=== PATIENT | male | born 1955 | race Caucasian/White ===

== ENCOUNTER 2022-11-04 20:59 | Inpatient (IN) | payer MEDICARE, MEDICAID, SELFPAY ==
--- NOTE | ~2022-11-04 | US_ITS ---
EXAMINATION: US carotid duplex BI DATE: 11/07/2022 14:52 INDICATION: Acute infarct involving the left cerebral white matter. TECHNIQUE: Grayscale, color Doppler, and pulsed Doppler images of the cervical carotid arteries were obtained. The degree of vessel stenosis is placed in one of the following categories: normal, <50%, 5 0-69%, >=70% but less than near-occlusion, near-occlusion, or total occlusion. Note that percent sten osis relative to normal distal artery lumen diameter is indirectly measured from velocity measurement s as described by Fahad, et al. Radiology 2003; 229:340-346. COMPARISON: None. FINDINGS: RIGHT: The right common carotid artery (CCA) peak systolic velocity (PSV) is 90 cm/s. The right internal car otid artery (ICA) PSV is 67 cm/s. The right ICA end-diastolic velocity (EDV) is 20 cm/s. The right IC A/CCA PSV ratio is 0.7. Grayscale and color Doppler images yield an estimate of <50% diameter reducti on from plaque in the ICA. There is antegrade flow in the right vertebral artery. LEFT: The left CCA PSV is 137 cm/s. The left ICA PSV is 199 cm/s. The left ICA EDV is 25 cm/s. The left ICA /CCA PSV ratio is 1.5. Grayscale and color Doppler images yield an estimate of <50% diameter reductio n from plaque in the ICA. There is antegrade flow in the left vertebral artery. IMPRESSION: 1. <50% stenosis in the right internal carotid artery. 2. <50% stenosis in the left internal carotid artery. Reviewed, dictated and finalized at location A.
--- NOTE | ~2022-11-04 | XR_ITS ---
XR chest 1V portable DATE: 11/04/2022 22:34 INDICATION: Centralized chest pain TECHNIQUE: Portable AP view on 11/05/2019 08/23/1933 COMPARISON: 02/01/2016 CT lung screening 03/09/2005 portable AP chest FINDINGS: Normal heart size. No hilar or mediastinal enlargement. No pulmonary infiltrate or consolid ation, pleural effusion or pulmonary vascular congestion or pneumothorax is detected. IMPRESSION: No active disease Reviewed, dictated and finalized at location A. IMPRESSION: No active disease
--- NOTE | ~2022-11-04 | CT_ITS ---
EXAMINATION: CT brain wo con DATE: 11/04/2022 23:00 INDICATION: Dizziness, weakness, gait disturbance, inability to walk. TECHNIQUE: Computed tomography (CT) of the head was performed without intravenous contrast. The mA wa s adjusted according to patient size. Iterative reconstruction technique was employed. Exam dose: 60 5.33 mGy-cm total exam DLP. COMPARISON: 12/20/2004 CT brain FINDINGS: Intracranial cerebral atherosclerosis. There is nonspecific diminished attenuation cerebral white matter, likely due to chronic small vessel ischemic changes. Bilateral chronic basal ganglia lacunar infarcts. There is a focal area of more diminished attenuation in the right periventricular white matter, which may represent a subacute or old infarct. No intracranial mass lesion or hemorrhage, midline shift or mass effect is detected. No subdural or e pidural hematoma. No fracture or bone destruction of the cranial vault. Included mastoid air cells and paranasal sinuse s are normally developed and aerated. 11/04/2022 IMPRESSION: Subacute or chronic focal infarct right periventricular white matter Several atherosclerosis and chronic small vessel ischemic changes of the cerebral white matter Reviewed, dictated and finalized at Location A. Reviewed, dictated and finalized at location A. IMPRESSION: Subacute or chronic focal infarct right periventricular white hortensia er Several atherosclerosis and chronic small vessel ischemic changes of the cerebr al white matter
--- NOTE | ~2022-11-04 | MR_ITS ---
MRI of the brain Clinical History: Dizziness Technique: Axial and sagittal T1-weighted images were acquired. These were followed by axial T2-weigh lara, diffusion weighted, gradient, and FLAIR images. Following intravenous administration of 16 cc Mu ltiHance gadolinium, T1-weighted fat-sat imaging was performed in the axial and coronal planes. Findings: There is a 2.2 x 0.8 cm area versus diffusion in the periventricular white matter adjacent to the left lateral ventricle, consistent with acute infarct, just superior to the basal ganglia. No intracranial hemorrhage identified. No mass lesion evident. There are several hyperintense white matter lesions in the periventricular white matter bilaterally o therwise, likely are presenting chronic microvascular ischemic change. Probable focal old right parie bucky lobe infarct present. Ventricles and subarachnoid spaces are unremarkable. Orbits are unremarkable. Paranasal sinuses and m astoid air cells are clear. Major intracranial flow voids are grossly preserved. Sagittal midline structures are intact. No abnormal postcontrast enhancement identified. IMPRESSION: 2.2 x 0.8 cm acute infarct in the immediate left periventricular white matter. Moderate probable chronic microvascular ischemic change. Correlate for any possibility of demyelinati ng disease/multiple sclerosis. Probable focal old right parietal lobe infarct. Reviewed, dictated and finalized at location M. IMPRESSION: 2.2 x 0.8 cm acute infarct in the immediate left periventricular white matter. Moderate probable chronic microvascular ischemic change. Correlate for any poss ibility of demyelinating disease/multiple sclerosis. Probable focal old right parietal lobe infarct.
--- NOTE | ~2022-11-04 | US_ITS ---
Renal-Bladder ultrasound Clinical History: Acute renal insufficiency Technique: Real-time sonographic imaging of the kidneys and urinary bladder was performed. Findings: The right kidney measures 9.5 cm in length and the left kidney measures 11.3 cm. There is n o hydronephrosis or renal calculus identified. Renal cortical echogenicity is within normal limits. N o renal mass lesion is identified. The urinary bladder is partially distended at the time of this exam. No intraluminal echoes are ident ified. No abnormal wall thickening is seen. Impression: Unremarkable ultrasound of the kidneys and urinary bladder. Reviewed, dictated and finalized at location M. Impression: Unremarkable ultrasound of the kidneys and urinary bladder.
[2022-11-04 21:01] VITALS: BP 178/78; PULSE 66; RESP 18; TEMP 36.5; O2SAT 98
[2022-11-04 22:15] LABS: Glucose Point of Care 122 mg/dl (65-105)
--- NOTE | 2022-11-04 22:19 | ECG_ITS ---
Measurements Intervals [place] Rate: 55 P: -16 VT: 143 QRS: 69 QRSD: 98 T: 45 QT: 452 QTc: 433 Interpretive Statements SINUS BRADYCARDIA SEPTAL MYOCARDIAL INFARCTION , OF INDETERMINATE AGE [40+ ms Q WAVE IN V1/V2] NO PREVIOUS ECG AVAILABLE FOR COMPARISON Electronically Signed On 11-05-2022 12:15:25 CDT by Armando Lugo M.D.
[2022-11-04 22:34] LABS: Alanine Aminotransferase 25 U/L (6-50); Albumin Level 3.9 g/dL (3.5-5.1); Alkaline Phosphatase 91 U/L (38-126); Anion Gap 3 mmol/L (8-16); Aspartate Amino Transferase 29 U/L (17-59); Bilirubin,Total 1.3 mg/dL (0.2-1.3); Blood Urea Nitrogen 28 mg/dL (9-20); Calcium 9.2 mg/dL (8.4-10.2); Carbon Dioxide 34 mmol/L (22-30); Chloride 102 mmol/L (98-107); Estimated Glomerular Filt Rate 50; Glucose 126 mg/dL (65-110); Potassium 3.8 mmol/L (3.4-5.0); Sodium 139 mmol/L (137-145)
[2022-11-04 23:29] LABS: Basophils Percent Auto 0.7 % (0.2-1.2); Eosinophils Absolute Auto 0.1 K/mm3 (0-0.3); Eosinophils Percent Auto 2.3 % (0-4.4); Hematocrit 43.8 % (42.0-52.0); Hemoglobin 14.6 g/dL (14.0-18.0); Immature Granulocyte Absolute 0.02 K/mm3 (0.00-0.031); Immature Granulocyte Percent A 0.3 % (0-0.5); Immature Platelet Fraction Pct 5.2 % (0.9-11.2); Lymphocytes Absolute Auto 0.82 K/mm3 (0.9-3.2); Lymphocytes Percent Auto 13.6 % (18.3-44.2); Mean Corpuscular HGB Conc 33.3 g/dl (32-36); Mean Corpuscular Hemoglobin 32.7 pg (26-34); Mean Platelet Volume 10.4 fl (7.4-10.4); Monocytes Absolute Auto 0.6 K/mm3 (0.1-0.6); Monocytes Percent Auto 9.9 % (2.6-8.5); Neutrophils Absolute Auto 4.4 K/mm3 (1.3-6.7); Neutrophils Percent Auto 73.2 % (45.5-73.1); Platelet Count Result 77 k/mm3 (150-375); Red Blood Count 4.47 M/mm3 (4.6-6.20); Red Cell Distribution Width 13.7 % (11.5-14.5)
[2022-11-04 23:30] VITALS: PULSE 61; O2SAT 97
[2022-11-04 23:45] LABS: Ammonia 10 umol/L (9-30); Ethanol < 10 mg/dL (<10); Lactic Acid Reflex 0.9 mmol/L (0.7-2.0); Magnesium 2.2 mg/dL (1.6-2.3)
[2022-11-04 23:47] LABS: Partial Thromboplastin Time 28.5 SECONDS (22.3-36.8); Prothrombin Time 13.1 Seconds (11.1-14.7)
[2022-11-04 23:50] LABS: Appearance Urine Clear (Clear); Bacteria Urine None Seen /hpf; Bilirubin Urine Negative (Negative); Blood Urine Trace (Negative); Color Urine Yellow (Yellow); Glucose Urine UA Negative (Negative); Ketones Urine Negative (Negative); Leukocyte Esterase Ur Negative LEU/UL (Negative); Nitrate Urine Negative (Negative); Protein Urine 1+ mg/dL (Negative); RBC Urine 0-2 /hpf (0-2); Specific Grav Ur 1.029 (1.001-1.035); Squamous Epithelial Cell Urine None seen /hpf (Few); WBC Urine 0-5 /hpf; pH Urine 5.5 (5.0-9.0)
[2022-11-04 23:53] LABS: Add Urine Microscopic? YES
[2022-11-05] VITALS (22 sets, daily range): BP systolic 146–201; BP diastolic 50–88; PULSE 61–83; RESP 16–22; TEMP 36.2–36.7; O2SAT 96–100; BMI 25.6
[2022-11-05 00:02] LABS: Barbiturate Screen Urine Negative (Negative); Benzodiazepines Screen Urine Negative (Negative)
[2022-11-05 00:02] LABS: Troponin I < 0.012 ng/mL (0.000-0.034)
--- NOTE | 2022-11-05 00:04 | PC.NURSE ---
Pt brought to ED by . reports over the past few weeks pt has been complaining of headaches which is unusual for pt. States pt has been taking excedrin for his headaches every day. Pt came to ED today because, starting last night, she noticed that pt was having difficulty walking. Pt is usually independent with steady gait. Pt required 1 assist to stand from wheelchair into ED stretcher. Shuffling gait noted. Pt denies any pain. Denies numbness/tingling. Pt also c/o feeling tired all the time and reports he has been sleeping much more than normal. Pt denies alcohol/drug use.
[2022-11-05 00:31] LABS: Cannabinoid Screen Urine Negative (Negative); Cocaine Screen Urine Negative (Negative); Methadone Screen Urine Negative (Negative); Opiate Screen Urine Negative (Negative); Phencyclidine Screen Urine Negative (Negative)
[2022-11-05] MEDS: diphenhydrAMINE HCl INJ 50 MG/ML VIAL 25 MG IV PUSH (00:44)
[2022-11-05] MEDS: METOCLOPRAMIDE HCL INJ 10 MG/2 ML VIAL IV PUSH (00:45)
[2022-11-05] MEDS: hydrALAZINE HCL 20 MG/ML VIAL 10 MG IV PUSH ×2 (00:46→02:57)
[2022-11-05 01:10] LABS: Amphetamine Screen Urine Positive (Negative)
--- NOTE | 2022-11-05 01:32 | PM.IMHP ---
H&P: HPI History of Present Illness Date/Time: 11/05/22 01:32 Chief Complaint: Altered mental status Narrative: 67-year-old male with past medical history significant for obstructive sleep apnea noncompliance with CPAP, tobacco dependence, patient is a smokes 1 pack of cigarettes daily, hypertension. Presents to the emergency room due to altered mental status and generalized weakness that started roughly since the day before and got progressively worse with bilateral lower extremity weakness and unsteady gait. History has been obtained mainly from who is at bedside patient is obtunded, lethargic unable to give any history he wakes up but dozes off. In emergency room patient was found to have a blood pressure of 200/88 Review of Systems Review of Systems: ROS unobtainable: Yes unobtainable due to mental status (Obtunded, lethargic) PMFSH Family History Family History Father Family history of lung cancer Patient's father is Mother Cerebrovascular accident Family history of diabetes mellitus in first degree relative Patient's mother is Sibling Family history of malignant neoplasm Family history of lung cancer Family history of renal failure Patient's sister is Patient's brother is Other Diabetes mellitus Hypertension Social History Social History Smoking status: Current every day smoker Alcohol intake: never Meds Home Medications and Allergies Allergies Allergy/AdvReac Type Severity Reaction Status Date / Time ibuprofen Allergy Mild NAUSEA Unverified 01/26/15 11:51 amoxicillin Allergy Unknown Verified 09/29/15 10:29 AMOXICILLIN TRIHYDRATE Allergy Unknown Uncoded 01/26/15 11:51 POTASSIUM CLAVULANATE Allergy Unknown Uncoded 01/26/15 11:51 Vital Signs Vital Signs - 24 hr 11/04/22 21:01 11/05/22 01:03 Temperature 97.7 F Pulse Rate 66 65 Respiratory Rate 18 18 Blood Pressure 178/78 H 173/76 H Pulse Oximetry 98 98 Oxygen Delivery Room Air Exam Narrative: Patient is laying in a stretcher Const: General: comfortable, no acute distress, well developed, ill appearing chronically, lethargic, patient obtunded, tired appearing and average body habitus Nutritional Appearance: average body habitus Orientation/consciousness: patient oriented x3 HENMT: Head: normal to inspection, normocephalic and atraumatic Ears: hearing grossly normal bilaterally Face/Nose/Sinus: normal facial exam Face and sinus: normal facial exam and face symmetric Eyes: General: appearance normal, both eyes and all related structures Pupils: Equal, round and reactive pupils present EOM: EOMs intact bilaterally Neck: Neck: full ROM, no lymphadenopathy and no JVD Thyroid: thyroid normal Lymphatic: no lymphadenopathy noted Resp: Effort & Inspection: normal respiratory effort and able to speak in complete sentences Auscultation: clear to auscultation bilaterally Cardio: Jugular venous distension: no JVD Rate: regular rate Rhythm: regular rhythm Heart sounds: S1 normal heart sound present and S2 normal heart sound present GI: GI Palp: Yes Soft to palpation and Yes No hepatosplenomegaly present : General: Yes deferred Skin: Rashes: no rashes Wounds: no wounds Neuro: General: no focal motor deficits, CN's II-XI intact bilaterally, patient obtunded and Unable to assess gait Cranial nerves: Yes CN's II-XII intact bilaterally and Yes Equal, round and reactive pupils present Cognition (Neuro): abnormal cognition (Obtunded, lethargic) Speech: normal speech Gait exam (Neuro): Normal gait present Motor exam (neuro): 5/5 motor strength present throughout Extrem: General: normal to inspection, full ROM, no joint enlargement and no pedal edema H&P: Results Labs Labs: Short CBC 11/04/22 Range/Units 23:17
--- NOTE | 2022-11-05 02:20 | ED.GENADULT ---
HPI - General Adult General Chief complaint: Weakness Stated complaint: weakness Time Seen by Provider: 11/04/22 22:31 History of Present Illness HPI narrative: Patient 67-year-old gentleman who presents emergency department with chief complaint of lower extremity weakness and confusion per the patient's family the patient has been very drowsy been complaining of dizziness and unsteady gait that been going on since yesterday patient reports that he has had some issues with remembering things but the biggest issue has been that he is not able to walk now patient has not had any bowel or bladder incontinence has not had any changes in his speech. Related Data Allergies Allergy/AdvReac Type Severity Reaction Status Date / Time ibuprofen Allergy Mild NAUSEA Unverified 01/26/15 11:51 amoxicillin Allergy Unknown Verified 09/29/15 10:29 AMOXICILLIN TRIHYDRATE Allergy Unknown Uncoded 01/26/15 11:51 POTASSIUM CLAVULANATE Allergy Unknown Uncoded 01/26/15 11:51 Review of Systems Review of Systems: A 10 system review of systems was completed on the patient and is negative except for what is stated in the HPI. Nursing and ancillary documentation was reviewed. [facility] Family History Family History Father Family history of lung cancer Patient's father is Mother Cerebrovascular accident Family history of diabetes mellitus in first degree relative Patient's mother is Sibling Family history of malignant neoplasm Family history of lung cancer Family history of renal failure Patient's sister is Patient's brother is Other Diabetes mellitus Hypertension Social History Social History Smoking status: Current every day smoker Alcohol intake: never Exam Narrative: GENERAL: Well-appearing, well-nourished, and in no acute distress. HEAD: Normocephalic, atraumatic. EYES: PERRLA and EOMI. ENT: Nares clear, no rhinorrhea or epistaxis. Mucous membranes moist. NECK: Supple. CHEST: Clear to auscultation. No respiratory distress. HEART: Regular rate and rhythm. No murmur heard. Normal peripheral pulses. ABDOMEN: Soft, nontender, nondistended, normal active bowel sounds. EXTREMITIES: Normal range of motion. No edema. SKIN: Warm, dry, no rash. NEURO: No focal deficits. Alert and oriented x3. PSYCH: Normal mood and affect. Course Vital Signs Vital signs: Vital Signs Temperature 36.5 C 11/04/22 21:01 Pulse Rate 66 11/04/22 21:01 Respiratory Rate 18 11/04/22 21:01 Blood Pressure 178/78 H 11/04/22 21:01 Pulse Oximetry 98 11/04/22 21:01 Oxygen Delivery Room Air 11/04/22 21:01 Temperature 36.5 C 11/04/22 21:01 Pulse Rate 61 11/05/22 02:17 Respiratory Rate 16 11/05/22 02:01 Blood Pressure 191/74 H 11/05/22 02:17 Pulse Oximetry 97 11/05/22 02:01 Oxygen Delivery Room Air 11/04/22 21:01 Medical Decision Making MDM Narrative Medical decision making narrative: Differential diagnosis includes TIA, musculoskeletal weakness, electrolyte abnormality, hypertensive urgency Laboratory studies were obtained on the patient which showed some mild renal insufficiency otherwise laboratory studies are within normal limits. Urinalysis showed some urobilinogen but otherwise no infection talk screen was positive for amphetamines EtOH was CT head showed no evidence of acute abnormality Chest x-ray showed no focal findings. Due to the patient having difficulty with ambulation due to the weakness the case was discussed with the hospitalist the patient admitted to the hospital for observation and MRI Vital Signs Vital Signs: Vital Signs Temperature 36.5 C 11/04/22 21:01 Pulse Rate 66 11/04/22 21:01 Respiratory Rate 18 11/04/22 21:01 Blood Pressure 178/78 H 11/04/22 21:01 Pulse O
--- NOTE | 2022-11-05 03:25 | PCRCNOTE ---
pt refused ABG, RN informed.
[2022-11-05 03:48] LABS: Troponin I < 0.012 ng/mL (0.000-0.034)
--- NOTE | 2022-11-05 04:00 | ADMGEN ---
This patient, Shai Hunter, was admitted to IMU Room 205-02. Patient/family oriented to hospital policies and general routines including ID bracelet, bed and alarms, visiting hours, pain management, procedures, bathroom and other care routines, personal items, smoking policy, room service/diet, and visiting hours. Information on how to activate the Rapid Response Team has been discussed. Patient/Family are encouraged to report perceived risks to care and to ask questions if they do not understand what they are told or what they should do.
--- NOTE | 2022-11-05 09:33 | PM.IMPN ---
Progress Note: A&P Assessment and Plan (1) Uncontrolled hypertension: Code(s): I10 - Essential (primary) hypertension Status: Acute Assessment and Plan: Blood pressures reviewed 11/05, much improved Cont hydralazine as needed Start norvasc 5 mg daily 11/05 (2) Altered mental status: Code(s): R41.82 - Altered mental status, unspecified Status: Acute Assessment and Plan: Follow up MRI, echo, suspect 2/2 amphetamine abuse (3) Obstructive sleep apnea: Code(s): G47.33 - Obstructive sleep apnea (adult) (pediatric) Status: Acute Assessment and Plan: Patient has noncompliance (4) Tobacco dependence: Code(s): F17.200 - Nicotine dependence, unspecified, uncomplicated Status: Acute Assessment and Plan: Nicotine patch as needed (5) Generalized weakness: Code(s): R53.1 - Weakness Status: Acute Assessment and Plan: Multifactorial, PT/OT consult pending (6) VON (acute kidney injury): Code(s): N17.9 - Acute kidney failure, unspecified Status: Acute Assessment and Plan: Unsure of etiology, likely combination of dehydration, amphetamine abuse, and uncontrolled HTN Plan DVT prophylaxis with SCDs GI prophylaxis not indicated Code status full code Subjective Date/time seen: 11/05/22 09:33 Interval history: Six 7-year-old male with history of sleep apnea noncompliant with CPAP, tobacco dependence and hypertension is presenting with altered mental status as well as generalized weakness currently being treated for uncontrolled hypertension versus hypertensive encephalopathy. No overnight events noted. No chest pain or shortness of breath. No nausea, vomiting or diarrhea. No fevers or chills. Appears somewhat confused, but denies any complaints or concerns. No family at bedside. Review of Systems Review of Systems: 12 point review of systems was assessed and was negative except as noted in the HPI Exam Narrative: General: No acute distress, alert and oriented, unsure of baseline, seems somewhat slowed HEENT: Atraumatic, normocephalic, mucous membranes moist CV: Regular rate and rhythm, S1, S2 Lungs: Clear to auscultation bilaterally, no rales or crackles noted, no wheezes, good air entry Abdomen: Soft, nontender, nondistended Extremities: Normal to inspection Skin: No rashes noted, no lesions or wounds seen Psych: Odd affect Neuro: Cranial nerves 2-12 grossly intact, strength +5/5 upper and lower extremities bilaterally Objective Data Vital Signs Vital Signs: Vital Signs - 24 hr 11/04/22 21:01 11/05/22 01:03 11/04/22 23:30 Temperature 97.7 F Pulse Rate 66 65 61 Respiratory Rate 18 18 Blood Pressure 178/78 H 173/76 H Pulse Oximetry 98 98 97 Oxygen Delivery Room Air 11/05/22 00:31 11/05/22 02:01 11/05/22 02:15 Temperature Pulse Rate 71 63 62 Respiratory Rate 16 Blood Pressure 201/88 H 190/83 H Pulse Oximetry 99 97 Oxygen Delivery 11/05/22 02:17 11/05/22 03:04 11/05/22 03:20 Temperature Pulse Rate 61 67 77 Respiratory Rate 16 16 Blood Pressure 191/74 H 162/58 H 146/53 H Pulse Oximetry 100 98 Oxygen Delivery 11/05/22 04:00 11/05/22 03:45 11/05/22 06:00 Temperature 98 F Pulse Rate 72 81 74 Respiratory Rate 20 Blood Pressure 166/58 H Pulse Oximetry 100 Oxygen Delivery 11/05/22 07:49 11/05/22 08:00 Temperature 97.6 F Pulse Rate 83 76 Respiratory Rate 20 Blood Pressure 159/50 H Pulse Oximetry 97 Oxygen Delivery Intake/Output Intake/Output: Intake & Output 11/02/22 11/03/22 11/04/22 11/05/22 23:59 23:59 23:59 23:59 Output Total 500 Balance -500 Meds/Results Medications: Active Medications Generic Name Dose Route Start Last Admin Trade Name Freq PRN Reason Stop Dose Admin Hydralazine HCl 10 mg 11/05/22 02:45 Hydralazine Hcl 20 Mg/Ml Vial IV PUSH
[2022-11-05 10:17] LABS: Basophils Percent Auto 0.5 % (0.2-1.2); Eosinophils Absolute Auto 0.1 K/mm3 (0-0.3); Eosinophils Percent Auto 1.6 % (0-4.4); Hematocrit 43.4 % (42.0-52.0); Hemoglobin 14.4 g/dL (14.0-18.0); Immature Granulocyte Absolute 0.02 K/mm3 (0.00-0.031); Immature Granulocyte Percent A 0.4 % (0-0.5); Immature Platelet Fraction Pct 4.2 % (0.9-11.2); Lymphocytes Absolute Auto 0.63 K/mm3 (0.9-3.2); Lymphocytes Percent Auto 11.2 % (18.3-44.2); Mean Corpuscular HGB Conc 33.2 g/dl (32-36); Mean Corpuscular Hemoglobin 32.7 pg (26-34); Mean Corpuscular Volume 98.4 fl (80-100); Monocytes Absolute Auto 0.4 K/mm3 (0.1-0.6); Monocytes Percent Auto 7.7 % (2.6-8.5); Neutrophils Absolute Auto 4.4 K/mm3 (1.3-6.7); Neutrophils Percent Auto 78.6 % (45.5-73.1); Platelet Count Result 78 k/mm3 (150-375); Red Blood Count 4.41 M/mm3 (4.6-6.20); Red Cell Distribution Width 13.8 % (11.5-14.5); White Blood Count 5.6 K/mm3 (4.5-10.0)
[2022-11-05 10:50] LABS: Alanine Aminotransferase 22 U/L (6-50); Albumin Level 3.6 g/dL (3.5-5.1); Alkaline Phosphatase 90 U/L (38-126); Anion Gap 4 mmol/L (8-16); Aspartate Amino Transferase 25 U/L (17-59); Bilirubin,Total 1.7 mg/dL (0.2-1.3); Blood Urea Nitrogen 27 mg/dL (9-20); Carbon Dioxide 30 mmol/L (22-30); Chloride 103 mmol/L (98-107); Estimated CRCL calculation 52 ml/min; Estimated Glomerular Filt Rate 60; Glucose 269 mg/dL (65-110); Potassium 3.6 mmol/L (3.4-5.0); Sodium 137 mmol/L (137-145)
[2022-11-05] MEDS: ACETAMINOPHEN 325 MG TABLET 650 MG PO (13:10)
[2022-11-05] MEDS: amLODIPine BESYLATE 5 MG TABLET PO (13:10)
[2022-11-05 14:44] LABS: Folic Acid 8.4 ng/mL (2.76->20)
[2022-11-05] MEDS: ASPIRIN 81 MG CHEWABLE TABLET 324 MG PO (18:16)
[2022-11-05] MEDS: MELATONIN 5 MG TABLET PO (22:08)
[2022-11-06] VITALS (16 sets, daily range): BP systolic 149–212; BP diastolic 56–81; PULSE 63–102; RESP 16–20; TEMP 36.4–36.7; O2SAT 93–100
--- NOTE | 2022-11-06 | ECHO_ITS ---
Patient Info Name: Shai Hunter Age: 67 years : 1955 Gender: Male Ht: 69 in Wt: 173 lbs BSA: 1.96 m2 HR: 65 bpm BP: 149 / 62 mmHg Technical Quality: Good Exam Date: 11/06/2022 10:05 AM Exam Location: [facility] Patient Status: Inpatient Admit Date: 11/06/2022 Staff Ordering Physician: Darlene Colin DO [employer] Furnace Tender: Claudia Rodas RDCS Attending Provider: Alessandra Garcia MD Referring Physician: Cristi BARTHOLOMEW; Exam Type: CA echo doppler w bubble study Study Info Indications - STROKE Complete two-dimensional, color flow and Doppler transthoracic echocardiogram is performed with agitated saline. Contrast/Agitated Saline Contrast/Ag. Saline: Agitated Saline Amount: 20.00 ml Administered By: Zoe Morales RDCS Existing IV Access: Yes IV Access Condition: patent with no signs of infiltration Summary 1. Left ventricular chamber dimension is normal. 2. Left ventricular systolic function is normal, estimated at 65-70%. 3. The left ventricular diastolic function is grade I diastolic dysfunction. 4. E/e' 12 is mildly elevated. 5. Global longitudinal strain is abnormal at -15.3%. 6. Left atrial chamber dimension is mildly enlarged. 7. There is moderate aortic valve sclerosis. 8. No pulmonary hypertension, estimated pulmonary arterial systolic pressure is 27 mmHg. Left Ventricle E/e' 12 is mildly elevated. Global longitudinal strain is abnormal at -15.3%. Left ventricular chamber dimension is normal. Left ventricular systolic function is normal, estimated at 65-70%. The left ventricular diastolic function is grade I diastolic dysfunction. Right Ventricle Right ventricular chamber dimension is normal. Right ventricular systolic function is normal. Left Atria Left atrial chamber dimension is mildly enlarged. Right Atria Right atrial chamber dimension is normal. Atrial Septum Agitated saline injection with and without valsalva maneuver opacified right side cardiac chambers and without shunt to left side cardiac chambers. Intact interatrial septum visualized by 2D and agitated saline imaging. Aortic Valve The aortic valve is trileaflet. There is moderate aortic valve sclerosis. There is no aortic valve stenosis. There is no aortic valve regurgitation. Pulmonic Valve There is no pulmonic regurgitation. Mitral Valve There is no mitral valve stenosis. There is no mitral valve regurgitation. Tricuspid Valve There is no tricuspid valve regurgitation. No pulmonary hypertension, estimated pulmonary arterial systolic pressure is 27 mmHg. Pericardium/Pleural There is no pericardial effusion. Inferior Vena Cava Normal inferior vena cava with >50% collapse upon inspiration consistent with normal right atrial pressure, 5 mmHg. Aorta The aortic root size at the sinus of Valsalva is normal. Left Ventricular Outflow Tract Name Value Normal LVOT 2D LVOT Diameter 2.0 cm LVOT Doppler LVOT Peak Gradient 5 mmHg LVOT Mean Gradient 3 mmHg LVOT VTI 29 cm LVOT VTI/AV VTI Ratio 0.7 LVOT Stroke Volume
[2022-11-06 04:54] LABS: Basophils Percent Auto 0.5 % (0.2-1.2); Eosinophils Absolute Auto 0.1 K/mm3 (0-0.3); Eosinophils Percent Auto 2.5 % (0-4.4); Hematocrit 42.2 % (42.0-52.0); Immature Granulocyte Absolute 0.01 K/mm3 (0.00-0.031); Immature Granulocyte Percent A 0.2 % (0-0.5); Immature Platelet Fraction Pct 4.5 % (0.9-11.2); Lymphocytes Absolute Auto 1.16 K/mm3 (0.9-3.2); Lymphocytes Percent Auto 20.5 % (18.3-44.2); Mean Corpuscular HGB Conc 33.2 g/dl (32-36); Mean Corpuscular Hemoglobin 32.6 pg (26-34); Mean Corpuscular Volume 98.1 fl (80-100); Mean Platelet Volume 10.7 fl (7.4-10.4); Monocytes Absolute Auto 0.5 K/mm3 (0.1-0.6); Monocytes Percent Auto 9.5 % (2.6-8.5); Neutrophils Absolute Auto 3.8 K/mm3 (1.3-6.7); Neutrophils Percent Auto 66.8 % (45.5-73.1); Platelet Count Result 83 k/mm3 (150-375); White Blood Count 5.7 K/mm3 (4.5-10.0)
[2022-11-06 05:01] LABS: Alanine Aminotransferase 21 U/L (6-50); Albumin Level 3.6 g/dL (3.5-5.1); Alkaline Phosphatase 83 U/L (38-126); Anion Gap 1 mmol/L (8-16); Aspartate Amino Transferase 24 U/L (17-59); Bilirubin,Total 1.5 mg/dL (0.2-1.3); Blood Urea Nitrogen 33 mg/dL (9-20); Calcium 8.8 mg/dL (8.4-10.2); Carbon Dioxide 33 mmol/L (22-30); Chloride 105 mmol/L (98-107); Cholesterol 164 mg/dL (0-200); Estimated CRCL calculation 48 ml/min; Estimated Glomerular Filt Rate 55; Glucose 120 mg/dL (65-110); HDL Direct 87 mg/dL; Potassium 4.3 mmol/L (3.4-5.0); Sodium 139 mmol/L (137-145); Triglycerides 47 mg/dL (<150)
[2022-11-06 05:05] LABS: Hemoglobin A1C 5.7 % (<5.7)
[2022-11-06 05:12] LABS: LDL Cholesterol Direct 59 mg/dL
--- NOTE | 2022-11-06 07:59 | PM.IMPN ---
Progress Note: A&P Assessment and Plan (1) Acute CVA (cerebrovascular accident): Code(s): I63.9 - Cerebral infarction, unspecified Status: Acute Assessment and Plan: Neuro consult appreciated Statin, aspirin, BP control PT/OT, needs rehab at d/c (2) Uncontrolled hypertension: Code(s): I10 - Essential (primary) hypertension Status: Acute Assessment and Plan: Blood pressures reviewed 11/06, still high but improving Cont hydralazine as needed Start norvasc 5 mg daily 11/05 (3) Altered mental status: Code(s): R41.82 - Altered mental status, unspecified Status: Acute Assessment and Plan: MRI positive for acute infarct, neuro consult pending (4) Obstructive sleep apnea: Code(s): G47.33 - Obstructive sleep apnea (adult) (pediatric) Status: Acute Assessment and Plan: Patient is noncompliant with CPAP (5) Tobacco dependence: Code(s): F17.200 - Nicotine dependence, unspecified, uncomplicated Status: Acute Assessment and Plan: Nicotine patch as needed (6) Generalized weakness: Code(s): R53.1 - Weakness Status: Acute Assessment and Plan: Likely 2/2 acute CVA, PT/OT consult pending (7) VON (acute kidney injury): Code(s): N17.9 - Acute kidney failure, unspecified Status: Acute Assessment and Plan: Unsure of etiology, likely combination of dehydration, amphetamine use, and uncontrolled HTN Plan Stable for discharge 11/06 to inpatient rehab DVT prophylaxis with SCDs GI prophylaxis not indicated Code status full code Subjective Date/time seen: 11/06/22 07:59 Interval history: Six 7-year-old male with history of sleep apnea noncompliant with CPAP, tobacco dependence and hypertension is presenting with altered mental status as well as generalized weakness currently being treated for uncontrolled hypertension versus hypertensive encephalopathy. at bedside, discussed case, answered all questions. No overnight events noted. No chest pain or shortness of breath. No nausea, vomiting or diarrhea. No fevers or chills. Patient still with LE weakness, has not been up and moving around much. Review of Systems Review of Systems: 12 point review of systems was assessed and was negative except as noted in the HPI Exam Narrative: General: No acute distress, alert and oriented, unsure of baseline, seems somewhat slowed HEENT: Atraumatic, normocephalic, mucous membranes moist CV: Regular rate and rhythm, S1, S2 Lungs: Clear to auscultation bilaterally, no rales or crackles noted, no wheezes, good air entry Abdomen: Soft, nontender, nondistended Extremities: Normal to inspection Skin: No rashes noted, no lesions or wounds seen Psych: Odd affect Neuro: Cranial nerves 2-12 grossly intact, strength +5/5 upper and lower extremities bilaterally while in bed, gait not able to be safely assessed Objective Data Vital Signs Vital Signs: Vital Signs - 24 hr 11/05/22 08:00 11/05/22 10:00 11/05/22 11:45 Temperature 98.0 F Pulse Rate 76 77 78 Respiratory Rate 22 H Blood Pressure 162/71 H Pulse Oximetry 96 Oxygen Delivery 11/05/22 12:00 11/05/22 14:00 11/05/22 16:00 Temperature 97.1 F L Pulse Rate 77 74 71 Respiratory Rate 16 Blood Pressure 166/61 H Pulse Oximetry 97 Oxygen Delivery 11/05/22 16:00 11/05/22 16:00 11/05/22 18:00 Temperature Pulse Rate 71 79 68 Respiratory Rate 16 Blood Pressure Pulse Oximetry 97 Oxygen Delivery Room Air 11/05/22 19:32 11/05/22 20:00 11/05/22 20:00 Temperature 97.2 F L Pulse Rate 74 73 Respiratory Rate 20 Blood Pressure 158/71 H Pulse Oximetry 100 100 Oxygen Delivery Room Air 11/05/22 22:00 11/05/22 23:55 11/06/22 00:00 Temperature 97.9 F Pulse Rate 80 71 77 Respiratory Rate 20 Blood Pressure 151/55 H Pulse Oximetry 100
[2022-11-06] MEDS: amLODIPine BESYLATE 5 MG TABLET PO (09:03)
[2022-11-06] MEDS: TAMSULOSIN HCL 0.4 MG CAPSULE PO (09:04)
[2022-11-06] MEDS: ASPIRIN 81 MG CHEWABLE TABLET PO (09:04)
[2022-11-06] MEDS: ATORVASTATIN 40 MG TABLET 80 MG PO (09:04)
[2022-11-06 09:11] LABS: Glucose Point of Care 198 mg/dl (65-105)
--- NOTE | 2022-11-06 09:16 | WPDNEURCNPN ---
Assessment and Plan Assessment and plan (1) Acute CVA (cerebrovascular accident): Code(s): I63.9 - Cerebral infarction, unspecified Status: Acute (2) Hypertension: Code(s): I10 - Essential (primary) hypertension Status: Acute (3) Tobacco dependence: Code(s): F17.200 - Nicotine dependence, unspecified, uncomplicated Status: Acute Plan Mr. Hunter is a 67 year old male with a history of HTN, chronic smoking presenting due to lower extremity weakness (right worse than left). He was found to have left periventricular infarct, seems likely due to uncontrolled hypertension. He also is a daily smoker. Surface echocardiogram is unrevealing. - Start Aspirin and Plavix 75mg x 3 weeks, then Aspirin monotherapy - He will need CTA brain/carotid prior to discharge - Continue Lipitor - Optimize blood pressure control - Discussed importance of smoking cessation - Follow-up in [facility] in about 3-4 months Consult date: 11/07/22 Reason for consult: Acut stroke HPI: Shai Hunter is a 67 year old male with a history of LLUVIA, hypertension, and chronic smoking who presented due to lower extremity weakness. Patient presented initially due to progressive weakness in his lower extremities and unsteady gait that started the day prior to admission. When he presented to [place] ED his blood pressure was in the 170s-190s. EKG showed sinus bradycardia. His CT head showed questionable subacute/chronic infarct in the right periventricular region with severe atherosclerosis an chronic small vessel disease. He was subsequently admitted due to his symptoms and elevated blood pressure. MRI brain was obtained which showed left periventricular infarct. He has not had any vessel imaging. Surface echocardiogram has been done which is unrevealing. LDL is 59. He has been started on Aspirin and Lipitor 80mg daily during this admission. A1c is 5.7. His blood pressure was elevated to 212/81 yesterday. He reports smoking almost 1 ppd. His UDS was positive for amphetamines on presentation. Patient still feels a little weak in both legs -- but feels like the right leg is weaker than the left. Review of Systems Review of Systems: ROS unobtainable: Yes unobtainable due to endotracheal tube Constitutional: Constitutional: Reports no additional constitutional complaints Eyes: Eyes: Reports no additional eye complaints ENT: Reports system reviewed and no additional complaints, except as documented Cardiovascular: Cardiovascular: Reports no additional cardiovascular complaints Respiratory: Respiratory: Reports dyspnea Gastrointestinal: Gastrointestinal: Reports no additional gastrointestinal complaints Genitourinary: Genitourinary: Reports no additional male genitourinary complaints Musculoskeletal: Musculoskeletal: Reports no additional musculoskeletal complaints Integumentary/Breasts: Skin/Breast: Reports system reviewed and no additional complaints, except as docu Neurologic: Reports as per HPI Psychiatric: Psychiatric: Reports no additional psychiatric complaints [facility] Past Medical History Medical History Acute CVA (cerebrovascular accident) Hypertension Obstructive sleep apnea Tobacco dependence Family History Family History Father Family history of lung cancer Patient's father is Mother Cerebrovascular accident Family history of diabetes mellitus in first degree relative Patient's mother is Sibling Family history of malignant neoplasm Family history of lung cancer Family history of renal failure Patient's sister is Patient's brother is Other Diabetes mellitus Hypertension Social History Social History Smoking packs per day: 1 Smoking cigarettes per day: 20.0
--- NOTE | 2022-11-06 09:43 | PCSTNOTE ---
Please refer to the Bedside Swallow Evaluation and Communication Evaluation in the EMR. Please note, silent aspiration cannot be ruled out at bedside.
[2022-11-06] MEDS: LIDOCAINE 5% PATCH 1 PATCH TRANSDERM (16:02)
[2022-11-06] MEDS: TIZANIDINE HCL 2 MG TABLET PO (16:02)
[2022-11-06] MEDS: hydrALAZINE HCL 20 MG/ML VIAL 10 MG IV PUSH (20:11)
[2022-11-06] MEDS: ACETAMINOPHEN 325 MG TABLET 650 MG PO (22:07)
[2022-11-06] MEDS: MELATONIN 5 MG TABLET PO (22:07)
[2022-11-07 04:45] VITALS: BP 168/67; PULSE 84; RESP 18; O2SAT 100
[2022-11-07 05:06] LABS: Basophils Percent Auto 0.6 % (0.2-1.2); Eosinophils Absolute Auto 0.1 K/mm3 (0-0.3); Eosinophils Percent Auto 2.6 % (0-4.4); Hematocrit 41.1 % (42.0-52.0); Hemoglobin 13.8 g/dL (14.0-18.0); Immature Granulocyte Absolute 0.01 K/mm3 (0.00-0.031); Immature Granulocyte Percent A 0.2 % (0-0.5); Immature Platelet Fraction Pct 4.3 % (0.9-11.2); Lymphocytes Absolute Auto 1.07 K/mm3 (0.9-3.2); Lymphocytes Percent Auto 19.9 % (18.3-44.2); Mean Corpuscular HGB Conc 33.6 g/dl (32-36); Mean Corpuscular Hemoglobin 32.6 pg (26-34); Mean Corpuscular Volume 97.2 fl (80-100); Mean Platelet Volume 10.9 fl (7.4-10.4); Monocytes Absolute Auto 0.5 K/mm3 (0.1-0.6); Monocytes Percent Auto 9.1 % (2.6-8.5); Neutrophils Absolute Auto 3.6 K/mm3 (1.3-6.7); Neutrophils Percent Auto 67.6 % (45.5-73.1); Platelet Count Result 77 k/mm3 (150-375); Red Blood Count 4.23 M/mm3 (4.6-6.20); Red Cell Distribution Width 13.5 % (11.5-14.5); White Blood Count 5.4 K/mm3 (4.5-10.0)
[2022-11-07 05:19] LABS: Alanine Aminotransferase 24 U/L (6-50); Albumin Level 3.8 g/dL (3.5-5.1); Alkaline Phosphatase 100 U/L (38-126); Anion Gap 4 mmol/L (8-16); Aspartate Amino Transferase 26 U/L (17-59); Bilirubin,Total 1.8 mg/dL (0.2-1.3); Blood Urea Nitrogen 31 mg/dL (9-20); Calcium 8.8 mg/dL (8.4-10.2); Carbon Dioxide 28 mmol/L (22-30); Chloride 105 mmol/L (98-107); Estimated CRCL calculation 56 ml/min; Estimated Glomerular Filt Rate > 60; Glucose 161 mg/dL (65-110); Potassium 3.7 mmol/L (3.4-5.0); Sodium 137 mmol/L (137-145)
[2022-11-07 08:00] VITALS: BP 170/76; PULSE 95; RESP 16; TEMP 36.1; O2SAT 99
[2022-11-07] MEDS: ASPIRIN 81 MG CHEWABLE TABLET PO (08:43)
[2022-11-07] MEDS: TAMSULOSIN HCL 0.4 MG CAPSULE PO (08:43)
[2022-11-07] MEDS: ATORVASTATIN 40 MG TABLET 80 MG PO (08:43)
[2022-11-07] MEDS: amLODIPine BESYLATE 5 MG TABLET PO (08:43)
[2022-11-07] MEDS: LIDOCAINE 5% PATCH 1 PATCH TRANSDERM (08:45)
--- NOTE | 2022-11-07 11:18 | PM.DS ---
DS: Admitting Diagnosis Discharge Date 11/07/22 Admitting Diagnosis Altered mental status DS: Discharge Diagnosis Discharge Diagnosis (1) Acute CVA (cerebrovascular accident): Code(s): I63.9 - Cerebral infarction, unspecified Status: Acute Assessment and Plan: Neuro consult appreciated Statin, aspirin, BP control PT/OT, needs rehab at d/c (2) Uncontrolled hypertension: Code(s): I10 - Essential (primary) hypertension Status: Acute Assessment and Plan: Blood pressures reviewed 11/06, still high but improving Cont hydralazine as needed Start norvasc 5 mg daily 11/05 (3) Altered mental status: Code(s): R41.82 - Altered mental status, unspecified Status: Acute Assessment and Plan: MRI positive for acute infarct, neuro consult pending (4) Obstructive sleep apnea: Code(s): G47.33 - Obstructive sleep apnea (adult) (pediatric) Status: Acute Assessment and Plan: Patient is noncompliant with CPAP (5) Tobacco dependence: Code(s): F17.200 - Nicotine dependence, unspecified, uncomplicated Status: Acute Assessment and Plan: Nicotine patch as needed (6) Generalized weakness: Code(s): R53.1 - Weakness Status: Acute Assessment and Plan: Likely 2/2 acute CVA, PT/OT consult pending (7) VON (acute kidney injury): Code(s): N17.9 - Acute kidney failure, unspecified Status: Acute Assessment and Plan: Unsure of etiology, likely combination of dehydration, amphetamine use, and uncontrolled HTN Plan Stable for discharge 11/06 to inpatient rehab DVT prophylaxis with SCDs GI prophylaxis not indicated Code status full code DS: Summary Hospital Course Hospital Course: 67-year-old male with history of sleep apnea noncompliant with CPAP, tobacco dependence and hypertension is presenting with altered mental status as well as generalized weakness currently being treated for uncontrolled hypertension versus hypertensive encephalopathy. Neurology was consulted and recommended starting aspirin and Plavix, carotid ultrasound, echo with bubble study, MRI, statin, smoking cessation and blood pressure control. Chest X-Ray 11/05/22 08:06 IMPRESSION: No active disease Head CT 11/05/22 09:07 IMPRESSION: Subacute or chronic focal infarct right periventricular white matter Several atherosclerosis and chronic small vessel ischemic changes of the cerebral white matter Renal Ultrasound 11/05/22 16:30 Impression: Unremarkable ultrasound of the kidneys and urinary bladder. Brain MRI 11/05/22 18:58 IMPRESSION: 2.2 x 0.8 cm acute infarct in the immediate left periventricular white matter. Moderate probable chronic microvascular ischemic change. Correlate for any possibility of demyelinating disease/multiple sclerosis. Probable focal old right parietal lobe infarct. Carotid Doppler Study 11/07/22 15:07 IMPRESSION: 1. <50% stenosis in the right internal carotid artery. 2. <50% stenosis in the left internal carotid artery. Please see above for details. Patient d/c for stroke rehab. Time Spent with Patient Time attestation: Total time spent providing and/or coordinating discharge services: Exam Narrative: General: No acute distress, alert and oriented, unsure of baseline, seems somewhat slowed HEENT: Atraumatic, normocephalic, mucous membranes moist CV: Regular rate and rhythm, S1, S2 Lungs: Clear to auscultation bilaterally, no rales or crackles noted, no wheezes, good air entry Abdomen: Soft, nontender, nondistended Extremities: Normal to inspection Skin: No rashes noted, no lesions or wounds seen Psych: Odd affect Neuro: Cranial nerves 2-12 grossly intact, strength +5/5 upper and lower extremities bilaterally while in bed, gait not able to be safely assessed DS: Data Data Completed and Pending Labs on day of discharge: Labs from [place]
[2022-11-07] MEDS: TIZANIDINE HCL 2 MG TABLET PO (12:00)
--- NOTE | 2022-11-07 13:20 | PC.NURSE ---
Spoke with Dr. Colin regarding Dr. Hutchinson's recommendations. With pt not having any IV access, new orders received to d/c CTA of brain and carotids and obtain a Carotid US prior to discharge. Dr. Colin will order new mediations at discharge per Dr. Hutchinson's recommendations
--- NOTE | 2022-11-07 14:36 | PCPTNOTE ---
Attempted to see patient for PT, however patient was out of the room for procedure.
[2022-11-07] MEDS: CLOPIDOGREL BISULFATE 75 MG TABLET PO (15:12)
[2022-11-07] MEDS: traMADol HCL (*CRX) 50 MG TABLET PO (15:12)
== END 2022-11-07 15:28 | DRG 65 ==
LOC: ANHED 11-05 02:42 → ANHIMU 11-05 03:01
PROVIDERS: Admitting Provider Internal Medicine; Emergency Provider Emergency Medicine; PCP Family Medicine; Visit Provider Student in an Organized Health Care Education/Training Program
DX: I63.9 Cerebral infarction, unspecified (principal); I67.4 Hypertensive encephalopathy; N17.9 Acute kidney failure, unspecified; E86.0 Dehydration; F17.210 Nicotine dependence, cigarettes, uncomplicated; G47.33 Obstructive sleep apnea (adult) (pediatric); I10 Essential (primary) hypertension; Z91.199 Patient's noncompliance with other medical treatment and regimen due to unspecified reason; Z99.89 Dependence on other enabling machines and devices; Z88.0 Allergy status to penicillin
CPT/HCPCS: 36415; 36600; 70450; 70553; 71045; 76775; 80053; 80061; 80307; 81001; 82140; 82607; 82746; 82948; 83036; 83605; 83735; 84443; 84484; 85025; 85055; 85610; 85730; 92523; 92610; 93005; 93306; 93880; 96374; 96375; 96376; 97110; 97116; 97129; 97161; 97165; 97535; 99285; A9270; A9577; G0378; J0360; J1200; J2765

== ENCOUNTER 2022-11-09 11:31 | Emergency (ER) | payer OTHER, MEDICARE, MEDICAID, SELFPAY ==
--- NOTE | ~2022-11-09 | CT_ITS ---
Non-contrast Head CT History: Headache Technique: Axial non-contrast imaging of the brain was performed. Dose reduction technique was used on this scan by utilizing automated exposure control and iterative reconstruction technique. The dose -length product (DLP) was 605.33 mGy-cm. Findings: There is a hypodense area in the left periventricular white matter, consistent with evolvin g acute infarct, better seen on recent MR dated 11/05/2022. No intracranial hemorrhage identified. The ventricles and subarachnoid spaces are normal in size. The calvarium appears normal. The visualized paranasal sinuses and mastoid air cells are clear. Impression: Evolving acute infarct in the left periventricular white matter, which correlates with that seen on r ecent MR dated 11/05/2022. No intracranial hemorrhage. Reviewed, dictated and finalized at [facility]. Impression: Evolving acute infarct in the left periventricular white matter, which correlat es with that seen on recent MR dated 11/05/2022. No intracranial hemorrhage.
--- NOTE | ~2022-11-09 | XR_ITS ---
EXAMINATION: XR chest 1V DATE: 11/09/2022 12:47 INDICATION: Altered mental status. TECHNIQUE: A single frontal view of the chest was obtained. COMPARISON: Chest single view 11/04/2022, chest CT 02/01/2016 FINDINGS: The chest demonstrates clear lungs without pneumonia, pleural effusion, or pneumothorax. Th e heart size is normal. IMPRESSION: 1. No acute cardiopulmonary disease. Reviewed, dictated and finalized at location A.
[2022-11-09 11:29] VITALS: BP 121/53; PULSE 72; RESP 17; TEMP 36.5; O2SAT 96
--- NOTE | 2022-11-09 11:41 | ECG_ITS ---
Measurements Intervals [place] Rate: 73 P: 0 MA: 116 QRS: 87 QRSD: 101 T: 50 QT: 423 QTc: 467 Interpretive Statements SINUS RHYTHM WITH SHORT MA INTERVAL COMPARED TO ECG 11/04/2022 22:25:32 SINUS RHYTHM NOW PRESENT Electronically Signed On 11-09-2022 13:48:08 CDT by Armando Lugo M.D.
[2022-11-09 11:50] VITALS: PULSE 70
[2022-11-09] MEDS: SODIUM CHLORIDE 0.9% IV 1,000 ML 999 ML IV CONT (12:43)
[2022-11-09 12:50] LABS: Basophils Percent Auto 0.6 % (0.2-1.2); Eosinophils Absolute Auto 0.1 K/mm3 (0-0.3); Eosinophils Percent Auto 2.1 % (0-4.4); Hematocrit 39.4 % (42.0-52.0); Hemoglobin 13.2 g/dL (14.0-18.0); Immature Granulocyte Absolute 0.02 K/mm3 (0.00-0.031); Immature Granulocyte Percent A 0.4 % (0-0.5); Immature Platelet Fraction Pct 6.7 % (0.9-11.2); Lymphocytes Absolute Auto 1.12 K/mm3 (0.9-3.2); Lymphocytes Percent Auto 21.3 % (18.3-44.2); Mean Corpuscular HGB Conc 33.5 g/dl (32-36); Mean Corpuscular Volume 98.5 fl (80-100); Mean Platelet Volume 11.5 fl (7.4-10.4); Monocytes Absolute Auto 0.7 K/mm3 (0.1-0.6); Monocytes Percent Auto 13.5 % (2.6-8.5); Neutrophils Absolute Auto 3.3 K/mm3 (1.3-6.7); Neutrophils Percent Auto 62.1 % (45.5-73.1); Platelet Count Result 84 k/mm3 (150-375); Red Cell Distribution Width 13.6 % (11.5-14.5); White Blood Count 5.3 K/mm3 (4.5-10.0)
[2022-11-09 13:06] LABS: Alanine Aminotransferase 23 U/L (6-50); Albumin Level 3.6 g/dL (3.5-5.1); Alkaline Phosphatase 80 U/L (38-126); Anion Gap 2 mmol/L (8-16); Aspartate Amino Transferase 24 U/L (17-59); Bilirubin,Total 1.1 mg/dL (0.2-1.3); Blood Urea Nitrogen 34 mg/dL (9-20); Calcium 8.9 mg/dL (8.4-10.2); Carbon Dioxide 30 mmol/L (22-30); Chloride 104 mmol/L (98-107); Estimated Glomerular Filt Rate 55; Ethanol < 10 mg/dL (<10); Glucose 95 mg/dL (65-110); Magnesium 1.9 mg/dL (1.6-2.3); Potassium 3.9 mmol/L (3.4-5.0); Sodium 136 mmol/L (137-145)
[2022-11-09 13:50] LABS: Appearance Urine Clear (Clear); Bilirubin Urine Negative (Negative); Blood Urine Negative (Negative); Color Urine Yellow (Yellow); Glucose Urine UA Negative (Negative); Ketones Urine Negative (Negative); Leukocyte Esterase Ur Negative LEU/UL (Negative); Nitrate Urine Negative (Negative); Protein Urine Negative (Negative); Specific Grav Ur 1.018 (1.001-1.035); pH Urine 5.5 (5.0-9.0)
[2022-11-09 13:51] LABS: Add Urine Microscopic? NO
--- NOTE | 2022-11-09 13:53 | ED.NEUROSD ---
HPI - Neuro Symptoms/Deficit General Chief Complaint: Neuro Symptoms/Deficit Stated Complaint: ams Time Seen by Provider: 11/09/22 12:08 History of Present Illness HPI Narrative: This is a 67-year-old male with recent history of stroke, presenting from his rehab facility with concerns for new strokelike symptoms, related to slurred speech. The patient's , who is at bedside notes the patient has appeared more tired than usual but his speech appears normal and he is moving all limbs. Last known well unknown. The patient complains of a headache, described as sharp and rated 6/10 but denies any focal weakness, numbness and has no other complaints today. Related Data Home Medications Medication Instructions Recorded Confirmed lisinopril 10 1 tablet PO DAILY 11/05/22 11/05/22 mg-hydrochlorothiazide 12.5 mg tablet tamsulosin 0.4 mg capsule 0.4 mg PO DAILY 11/05/22 11/05/22 Allergies Allergy/AdvReac Type Severity Reaction Status Date / Time amoxicillin Allergy Unknown Unknown Verified 11/05/22 11:36 clavulanic acid Allergy Unknown Unknown Verified 11/05/22 12:16 [From Augmentin] ibuprofen AdvReac Mild NAUSEA Verified 11/05/22 12:16 Review of Systems Review of Systems: CONSTITUTIONAL: Denies fever, chills, or sweats. CARDIOVASCULAR: Denies chest pain, palpitations, or edema. RESPIRATORY: Denies cough or dyspnea. GASTROINTESTINAL: Denies abdominal pain, nausea, vomiting, or diarrhea. GENITOURINARY: Denies dysuria or hematuria. SKIN: Denies rash or itching. MUSCULOSKELETAL: Denies back pain, joint pain, or myalgia. NEUROLOGIC: Headache denies numbness, dizziness, or weakness. PSYCHIATRIC: Denies anxiety or depression. [facility] Past Medical History Medical History Acute CVA (cerebrovascular accident) Hypertension Obstructive sleep apnea Tobacco dependence Family History Family History Father Family history of lung cancer Patient's father is Mother Cerebrovascular accident Family history of diabetes mellitus in first degree relative Patient's mother is Sibling Family history of malignant neoplasm Family history of lung cancer Family history of renal failure Patient's sister is Patient's brother is Other Diabetes mellitus Hypertension Social History Social History Smoking packs per day: 1 Smoking cigarettes per day: 20.0 Years smoked: 55 Smoking pack-years: 55.00 Smoking status: Heavy tobacco smoker Tobacco type: cigarettes Second hand tobacco smoke exposure: No Alcohol intake: former Substance use: never Substance use type: does not use Spiritual care concerns: No Exam Narrative: GENERAL: Well-developed, well-nourished, and in no acute distress. Appears uncomfortable HEAD: Normocephalic, atraumatic. EYES: PERRLA and EOMI. ENT: Nares clear, no rhinorrhea or epistaxis. Mucous membranes moist. Oropharynx without tonsillar hypertrophy exudate or other lesions. NECK: Supple. No adenopathy or masses. No JVD CHEST: Clear to auscultation. No respiratory distress. No wheezes rales or rhonchi HEART: Regular rate and rhythm. No murmur heard. Normal peripheral pulses. ABDOMEN: Soft, nontender, nondistended, normal active bowel sounds. EXTREMITIES: Normal range of motion. No edema. SKIN: Warm, dry, no rash. NEURO: No focal deficits. Alert and oriented x3. Strength 5/5 in all extremities, sensation intact bilaterally, cranial nerves II through XII intact. No noted ataxia. No noted slurred speech PSYCH: Normal mood and affect. Course Course Emergency Course: 13:25 - CT head demonstrates changes consistent with recent MRI and no bleeding or intracranial mass. Chest x-ray unremarkable. Chemistries demonstrate slightly elev
[2022-11-09] MEDS: PROCHLORPERAZINE EDISYLATE 10 MG/2 ML VIAL IV PUSH (13:58)
[2022-11-09 15:22] LABS: Amphetamine Screen Urine Positive (Negative); Barbiturate Screen Urine Negative (Negative); Benzodiazepines Screen Urine Negative (Negative); Cannabinoid Screen Urine Negative (Negative); Cocaine Screen Urine Negative (Negative); Methadone Screen Urine Negative (Negative); Opiate Screen Urine Positive (Negative); Phencyclidine Screen Urine Negative (Negative)
== END 2022-11-09 16:22 ==
PROVIDERS: Emergency Provider Preventive Medicine Aerospace Medicine; PCP Family Medicine
DX: E86.0 Dehydration (principal); R51.9 Headache, unspecified; I69.351 Hemiplegia and hemiparesis following cerebral infarction affecting right dominant side; I10 Essential (primary) hypertension; G47.33 Obstructive sleep apnea (adult) (pediatric); F17.210 Nicotine dependence, cigarettes, uncomplicated; Z79.82 Long term (current) use of aspirin; Z79.899 Other long term (current) drug therapy
CPT/HCPCS: 36415; 70450; 71045; 80053; 80307; 81003; 83735; 85025; 85055; 93005; 96365; 96375; 99284; J0131; J0780; J7030